=== PATIENT | male | born 1990 | race Two or more races ===

== ENCOUNTER 2021-01-02 09:30 | Emergency (ER) | payer SELFPAY ==
[~2021-01-02] VITALS: Ht 167.6 cm; Wt 57.2 kg
--- NOTE | 2021-01-02 09:34 | NUR ---
TO ER BED 4, LEFT TEMPORAL AREA AND L HIP PAIN,FULL C-SPINE PRECAUTION, AWAITING MD NUNES
--- NOTE | 2021-01-02 10:11 | NUR ---
WENT TO CT
--- NOTE | 2021-01-02 11:04 | NUR ---
DR OSPINA JUST SPOKE TO THE PT RE THE FRACTURE
[2021-01-02] MEDS ORDERED: HYDR-4275 PO (11:09)
[2021-01-02 11:27] VITALS: BP 100/60
[2021-01-02] MEDS ORDERED: HYDROCODONE/APAP 5/325MG TABLET ONE (11:30)
[2021-01-02] MEDS: HYDROCODONE/APAP 5/325MG TABLET PO ONE (11:32)
== END 2021-01-02 11:41 | disposition home or self-care (01) ==
LOC: ER 09:55
DX: S32.592A Other specified fracture of left pubis, initial encounter for closed fracture (principal); S00.83XA Contusion of other part of head, initial encounter; R51.9 Headache, unspecified; Z79.899 Other long term (current) drug therapy; W17.89XA Other fall from one level to another, initial encounter; Y93.89 Activity, other specified; Y92.89 Other specified places as the place of occurrence of the external cause; Y99.8 Other external cause status
CPT/HCPCS: 70450; 73552; 74176; 99285; A6403